=== PATIENT | female | born 1970 | race African-American/Black ===

== ENCOUNTER 2023-04-28 11:12 | Emergency (ER) | payer OTHER, SELFPAY ==
[2023-04-28 12:08] LABS: Bilirubin Neg (Negative); Blood, Urine Negative (Negative); Clarity Clear (Clear); Glucose, Urine (Dipstick) >=1000 mg/dL (Negative); Ketone, Urine 15 mg/dL (Negative); Leukocyte Negative (Negative); Nitrite Negative (Negative); Protein, Urine (Dipstick) Negative (Neg-Trace); Urobilinogen Normal mg/dL (Less than 2)
[2023-04-28 12:17] LABS: Bacteria/HPF 3+ HPF (None Seen); CAUTI Indications for Culture Pelvic or flank pain; RBC/HPF 0-3 HPF (0-3); Squamous Epithelial 0-3 HPF (0-3); WBC/HPF 0-3 HPF (0-3)
[2023-04-28 12:19] LABS: Urine Culture Reflex No No
[2023-04-28] MEDS ORDERED: Ketorolac Tromethamine 30 MG/ML VIAL ONE (12:55)
[2023-04-28] MEDS ORDERED: Cyclobenzaprine 10 MG TAB ONE (12:55)
[2023-04-28] MEDS ORDERED: Dexamethasone 10 MG/ML VIAL ONE (12:57)
== END 2023-04-28 13:25 | disposition home or self-care (01) ==
LOC: CSHERS 11:12
DX: M54.16 Radiculopathy, lumbar region (principal); I25.10 Atherosclerotic heart disease of native coronary artery without angina pectoris; E11.9 Type 2 diabetes mellitus without complications; F17.210 Nicotine dependence, cigarettes, uncomplicated; Z79.82 Long term (current) use of aspirin; Z79.899 Other long term (current) drug therapy
CPT/HCPCS: 72100; 81001; 96372; J1100; J1885

== ENCOUNTER 2023-07-13 11:51 | Emergency (ER) | payer MEDICAID, OTHER ==
[2023-07-13] MEDS ORDERED: Acetaminophen 500 MG TAB ONE (14:49)
[2023-07-13 15:14] LABS: SARS-CoV-2 NAA Rapid Test Not Detected (NotDetected)
== END 2023-07-13 16:02 | disposition left against medical advice (07) ==
LOC: CSHERS 11:51
DX: Z53.21 Procedure and treatment not carried out due to patient leaving prior to being seen by health care provider (principal)

== ENCOUNTER 2023-08-05 13:53 | Emergency (ER) | payer MEDICAID ==
[2023-08-05 15:46] LABS: #Basophils 0.1 10x3/uL (0.0-0.2); #Eosinphils 0.1 10x3/uL (0.0-0.5); #Monocytes 0.4 10x3/uL (0.0-1.1); #Neutrophils 2.5 10x3/uL (1.5-8.4); %Eosinophils 1.2 % (0.0-6.0); %Lymphocytes 40.7 % (18.0-47.0); %Neutrophils 48.9 % (40.0-75.0); Hematocrit 43.8 % (34.9-44.5); Hemoglobin 14.4 g/dL (12.0-15.5); Mean Corpuscular HGB CONC 32.9 g/dL (32.0-36.0); Mean Corpuscular Volume 91.3 fl (81.6-98.3); Mean Platelet Volume 11.1 fl (7.4-10.4); Platelet Count 298 10x3/uL (150-450); RBC Distribution Width 12.5 % (11.5-14.5); White Blood Cell (WBC) Count 5.1 10x3/uL (3.5-10.5)
[2023-08-05 15:58] LABS: ALT (SGPT) 10 U/L (8-55); AST (SGOT) 12 U/L (5-34); Albumin 4.3 g/dL (3.5-5.0); Alkaline Phosphatase 130 U/L (40-110); Anion Gap 17 mmol/L (10-20); BUN (Urea Nitrogen) 16 mg/dL (9.8-20.1); Bilirubin, Total 0.3 mg/dL (0.2-1.2); Calc. Creatinine Clearance 0 mL/min (70-130); Calcium 9.5 mg/dL (7.8-10.44); Carbon Dioxide 25 mmol/L (22-29); Chloride 97 mmol/L (98-107); Estimated GFR 57; Globulin 3.3 g/dL (2.4-3.5); Potassium 4.9 mmol/L (3.5-5.1); Protein, Total 7.6 g/dL (6.0-8.3); Sodium 134 mmol/L (136-145)
[2023-08-05 15:59] LABS: Glucose 552 mg/dL (70-105)
[2023-08-05 16:03] LABS: Troponin I Less than 0.010 ng/mL (< 0.028)
[2023-08-05] MEDS ORDERED: Insulin Regular 300 UNITS/3 ML VIAL ONE (16:36)
[2023-08-05 16:38] LABS: Actual Bicarbonate (HCO3v) 30.8 mEq/L (22-28); Analyzer IN Cardio CS ER; Base Excess 3.9 mEq/L (-2 - +2); Calcium, Ionized (venous) 1.14 mmol/L (1.16-1.32); Chloride (VBG) 97 mmol/L (98-106); Hematocrit-VBG 45 % (36.0-47.0); Hemoglobin (Hb) 15.2 g/dL (11.7-16.0); Potassium (VBG) 4.33 mmol/L (3.70-5.30); Puncture Site Other Site; Sodium 138 mmol/L (133-146); pH (venous) 7.364 (7.32-7.43)
[2023-08-05 17:00] LABS: Bilirubin Neg (Negative); Blood, Urine 10 (Negative); Clarity Clear (Clear); Glucose, Urine (Dipstick) >=1000 mg/dL (Negative); Ketone, Urine 5 mg/dL (Negative); Leukocyte Negative (Negative); Nitrite Positive (Negative); Protein, Urine (Dipstick) 15 mg/dl (Neg-Trace); Specific Gravity, Urine 1.015 (1.005-1.030); Urobilinogen Normal mg/dL (Less than 2)
[2023-08-05 17:09] LABS: Bacteria/HPF 3+ HPF (None Seen); CAUTI Indications for Culture Pelvic or flank pain; RBC/HPF 0-3 HPF (0-3)
[2023-08-05 17:10] LABS: Yeast-Budding Rare HPF (None Seen)
[2023-08-05 17:13] LABS: Urine Culture Reflex No No
[2023-08-05 17:38] LABS: SARS-CoV-2 NAA Rapid Test Not Detected (NotDetected)
[2023-08-05 18:24] LABS: Glucose 304 mg/dL (70-105)
[2023-08-05] MEDS ORDERED: Fluconazole 100 MG TAB PO SCH (19:00)
== END 2023-08-05 19:10 | disposition home or self-care (01) ==
LOC: CSHERS 13:53
DX: E10.9 Type 1 diabetes mellitus without complications (principal); N39.0 Urinary tract infection, site not specified; I25.10 Atherosclerotic heart disease of native coronary artery without angina pectoris; Z79.4 Long term (current) use of insulin; F17.210 Nicotine dependence, cigarettes, uncomplicated; Z79.899 Other long term (current) drug therapy; Z79.82 Long term (current) use of aspirin; Z20.822 Contact with and (suspected) exposure to COVID-19
CPT/HCPCS: 36415; 36416; 71045; 80053; 81001; 82010; 82805; 83605; 84484; 85025; 87077; 87086; 87186; 93005; 96361; 96374; J1815

== ENCOUNTER 2023-10-17 12:08 | Emergency (ER) | payer OTHER ==
[2023-10-17] MEDS ORDERED: Benzonatate 100 MG CAP ONE (13:14)
[2023-10-17] MEDS ORDERED: Ibuprofen 200 MG TAB ONE (13:14)
== END 2023-10-17 14:26 | disposition home or self-care (01) ==
LOC: CSHERS 12:08
DX: L60.0 Ingrowing nail (principal); R05.9 Cough, unspecified; E10.9 Type 1 diabetes mellitus without complications; F17.210 Nicotine dependence, cigarettes, uncomplicated
CPT/HCPCS: 71045

== ENCOUNTER 2023-11-03 15:53 | Emergency (ER) | payer OTHER ==
[2023-11-03] MEDS ORDERED: Ondansetron ODT 4 MG TAB ONE (17:02)
[2023-11-03] MEDS ORDERED: Ketorolac Tromethamine 30 MG (1 mL) VIAL ONE (17:02)
[2023-11-03 17:18] LABS: SARS-CoV-2 NAA Rapid Test Not Detected (NotDetected)
== END 2023-11-03 18:35 | disposition home or self-care (01) ==
LOC: CSHERS 15:53
DX: J06.9 Acute upper respiratory infection, unspecified (principal); F14.10 Cocaine abuse, uncomplicated; E10.9 Type 1 diabetes mellitus without complications; F17.210 Nicotine dependence, cigarettes, uncomplicated; Z55.6 Problems related to health literacy
CPT/HCPCS: 96372; 99283; J1885; Q0162

== ENCOUNTER 2023-11-12 20:43 | Observation (INO) | payer OTHER ==
[2023-11-12] MEDS ORDERED: Ketorolac Tromethamine 30 MG (1 mL) VIAL ONE (21:36)
[2023-11-12] MEDS ORDERED: Ondansetron PF 4 MG/2 ML Vial ONE (21:36)
[2023-11-12 22:31] LABS: ALT (SGPT) 7 U/L (8-55); AST (SGOT) 14 U/L (5-34); Albumin 3.9 g/dL (3.5-5.0); Alkaline Phosphatase 76 U/L (40-110); Anion Gap 15 mmol/L (10-20); BUN (Urea Nitrogen) 12 mg/dL (9.8-20.1); Bilirubin, Total 0.2 mg/dL (0.2-1.2); Calc. Creatinine Clearance 0 mL/min (70-130); Carbon Dioxide 23 mmol/L (22-29); Chloride 108 mmol/L (98-107); Estimated GFR 95; Globulin 2.9 g/dL (2.4-3.5); Protein, Total 6.8 g/dL (6.0-8.3); Sodium 142 mmol/L (136-145)
[2023-11-12 22:32] LABS: Critical Call Chemistry NUR.AEB @2232; Glucose 45 mg/dL (70-105)
[2023-11-12 22:39] LABS: Influenza A by NAA Not Detected (NotDetected); Influenza B by NAA Not Detected (NotDetected); SARS-CoV-2 NAA Rapid Test Not Detected (NotDetected)
[2023-11-12 23:14] LABS: #Basophils 0.1 10x3/uL (0.0-0.2); #Eosinphils 0.1 10x3/uL (0.0-0.5); #Monocytes 0.7 10x3/uL (0.0-1.1); #Neutrophils 4.8 10x3/uL (1.5-8.4); %Basophils 0.5 % (0.0-2.0); %Eosinophils 1.4 % (0.0-6.0); %Lymphocytes 38.3 % (18.0-47.0); %Monocytes 7.6 % (0.0-10.0); %Neutrophils 51.7 % (40.0-75.0); Hematocrit 42.2 % (34.9-44.5); Hemoglobin 13.6 g/dL (12.0-15.5); Mean Corpuscular HGB CONC 32.2 g/dL (32.0-36.0); Mean Corpuscular Hemoglobin 29.6 pg (27.0-33.0); Mean Corpuscular Volume 91.7 fl (81.6-98.3); Platelet Count 168 10x3/uL (150-450); RBC Distribution Width 13.3 % (11.5-14.5); White Blood Cell (WBC) Count 9.3 10x3/uL (3.5-10.5)
[2023-11-12 23:15] LABS: Large Platelets SLIGHT (None Seen); Platelet Adequacy Comment Appears Adequate; Platelet Clumps SLIGHT; RBC Morph Comment Within Normal Limits
[2023-11-13 00:39] LABS: Magnesium 1.8 mg/dL (1.6-2.6)
[2023-11-13] MEDS: GUAIFENESIN SF SOLN 200 MG/10 ML UDCUP PO SCH (01:07)
[2023-11-13] MEDS: Dextrose 5 % And 0.9 % NaCl 1,000 ML IV SCH ×4 (01:08→20:52)
[2023-11-13 03:01] VITALS: BMI 26.4
[2023-11-13 06:02] LABS: Anion Gap 11 mmol/L (10-20); BUN (Urea Nitrogen) 10 mg/dL (9.8-20.1); Calc. Creatinine Clearance 108 mL/min (70-130); Carbon Dioxide 22 mmol/L (22-29); Chloride 111 mmol/L (98-107); Estimated GFR 104; Glucose 64 mg/dL (70-105); Potassium 3.6 mmol/L (3.5-5.1); Sodium 140 mmol/L (136-145)
[2023-11-13] MEDS: Dextrose 10% in Water 1,000 ML IV SCH (06:30)
[2023-11-13] MEDS: guaiFENesin ER 600 MG TAB PO SCH (09:01)
[2023-11-13] MEDS: Enoxaparin 40 MG (0.4 mL) SYRINGE SC SCH (09:03)
[2023-11-13] MEDS ORDERED: Ipratropium/Albuterol 3 ML NEB NEB PRN (10:31)
[2023-11-13] MEDS: Benzonatate 100 MG CAP PO PRN (11:25)
[2023-11-13] MEDS: Loratadine 10 MG TAB PO PRN (11:25)
[2023-11-13] MEDS: Doxycycline 100 MG CAP PO SCH ×2 (11:26→20:52)
[2023-11-13] MEDS: Dicyclomine 10 MG CAP PO PRN (12:51)
[2023-11-13] MEDS: Saccharomyces boulardii 250 MG CAP PO SCH (15:28)
[2023-11-13] MEDS: Atorvastatin Calcium 40 MG TAB PO SCH (20:50)
[2023-11-13] MEDS: Ventolin HFA Inhaler 60 PUFF INHALER INH PRN (21:35)
[2023-11-14] MEDS ORDERED: Glucagon 1 MG/ML KIT IM PRN (07:45)
[2023-11-14] MEDS ORDERED: Dextrose 5% in Water 1,000 ML IV PRN (07:45)
[2023-11-14] MEDS ORDERED: Dextrose 50% Abboject 50 ML SYRINGE IVP PRN (07:45)
[2023-11-14] MEDS: Saccharomyces boulardii 250 MG CAP PO SCH (08:47)
[2023-11-14] MEDS: Aspirin 81 mg Enteric Coated Tablet PO SCH (08:48)
[2023-11-14] MEDS: Losartan 25 MG TAB PO SCH (08:48)
[2023-11-14] MEDS: HumaLOG 300 UNITS/3 ML VIAL SC SCH ×2 (08:49→18:18)
[2023-11-14] MEDS ORDERED: Lisinopril 2.5 MG TAB PO SCH (09:00)
[2023-11-14 17:36] VITALS: BP 150/88; TEMP 98.7
== END 2023-11-14 18:47 | disposition home or self-care (01) ==
LOC: CSHERS 20:43 → CSHERHOLD 23:43 → CSHTELE 11-13 02:19
PROVIDERS: ADMIT Family Medicine; ATTEND Nurse Practitioner Family
DX: J20.9 Acute bronchitis, unspecified (principal); J45.20 Mild intermittent asthma, uncomplicated; E10.649 Type 1 diabetes mellitus with hypoglycemia without coma; I25.10 Atherosclerotic heart disease of native coronary artery without angina pectoris; E78.5 Hyperlipidemia, unspecified; Z79.85 Long-term (current) use of injectable non-insulin antidiabetic drugs; Z79.51 Long term (current) use of inhaled steroids; Z79.899 Other long term (current) drug therapy; Z79.4 Long term (current) use of insulin; Z86.718 Personal history of other venous thrombosis and embolism
CPT/HCPCS: 36415; 36416; 71046; 80048; 80053; 83735; 85025; 94664; G0378; J1815; J1885; J2405; J7042

== ENCOUNTER 2024-02-22 13:19 | Emergency (ER) | payer OTHER ==
[~2024-02-22 13:19] MED LIST: Iopamidol 370 76% 100 ML VIAL ONE
[2024-02-22 14:29] LABS: #Basophils 0.05 10x3/uL (0.0-0.2); #Eosinphils 0.06 10x3/uL (0.0-0.5); #Monocytes 0.59 10x3/uL (0.0-1.1); #Neutrophils 5.44 10x3/uL (1.5-8.4); %Basophils 0.6 % (0.0-2.0); %Eosinophils 0.8 % (0.0-6.0); %Lymphocytes 20.8 % (18.0-47.0); %Monocytes 7.6 % (0.0-10.0); %Neutrophils 69.7 % (40.0-75.0); Hematocrit 37.1 % (34.9-44.5); Hemoglobin 12.3 g/dL (12.0-15.5); Mean Corpuscular HGB CONC 33.2 g/dL (32.0-36.0); Mean Corpuscular Hemoglobin 30.9 pg (27.0-33.0); Mean Corpuscular Volume 93.2 fL (81.6-98.3); Mean Platelet Volume 10.8 fL (7.4-10.4); Platelet Count 283 10x3/uL (150-450); RBC Distribution Width 13.5 % (11.5-14.5); Red Blood Cell (RBC) Count 3.98 10x6/uL (3.90-5.03); White Blood Cell (WBC) Count 7.8 10x3/uL (3.5-10.5)
[2024-02-22 14:39] LABS: INR-International Normal Ratio 0.9; PTT 25.2 sec (22.0-33.0); Prothrombin Time 9.7 sec (9.5-12.1)
[2024-02-22 14:43] LABS: ALT (SGPT) 20 U/L (8-55); AST (SGOT) 26 U/L (5-34); Albumin 3.2 g/dL (3.5-5.0); Alkaline Phosphatase 98 U/L (40-110); Anion Gap 15 mmol/L (10-20); BUN (Urea Nitrogen) 11 mg/dL (9.8-20.1); Bilirubin, Total 0.2 mg/dL (0.2-1.2); Calc. Creatinine Clearance 0 mL/min (70-130); Calcium 9.1 mg/dL (7.8-10.44); Carbon Dioxide 26 mmol/L (22-29); Chloride 106 mmol/L (98-107); Estimated GFR 86; Globulin 2.9 g/dL (2.4-3.5); Glucose 112 mg/dL (70-105); Potassium 4.3 mmol/L (3.5-5.1); Protein, Total 6.1 g/dL (6.0-8.3); Sodium 143 mmol/L (136-145)
[2024-02-22 14:46] LABS: Troponin I Less than 0.010 ng/mL (< 0.028)
[2024-02-22 15:36] LABS: Bilirubin Neg (Negative); Blood, Urine Negative (Negative); Clarity Clear (Clear); Glucose, Urine (Dipstick) Normal (Negative); Ketone, Urine Negative (Negative); Leukocyte Negative (Negative); Nitrite Negative (Negative); Protein, Urine (Dipstick) 15 mg/dl (Neg-Trace)
[2024-02-22 15:46] LABS: Bacteria/HPF Rare-Few HPF (None Seen); CAUTI Indications for Culture Pelvic or flank pain; RBC/HPF None Seen HPF (0-3); WBC/HPF 0-3 HPF (0-3)
[2024-02-22 15:47] LABS: Urine Culture Reflex No No
[2024-02-22 15:50] LABS: D-Dimer Test 1.04 mcg/mL (0.19-0.50)
== END 2024-02-22 16:30 | disposition home or self-care (01) ==
LOC: CSHERS 13:19
DX: I80.8 Phlebitis and thrombophlebitis of other sites (principal); I25.10 Atherosclerotic heart disease of native coronary artery without angina pectoris; E10.9 Type 1 diabetes mellitus without complications; Z79.4 Long term (current) use of insulin; F17.210 Nicotine dependence, cigarettes, uncomplicated
CPT/HCPCS: 36415; 71275; 80053; 81001; 83880; 84484; 85025; 85379; 85610; 85730; 93005; Q9967

== ENCOUNTER 2024-06-15 21:53 | Emergency (ER) | payer OTHER ==
[2024-06-15] MEDS ORDERED: predniSONE 20 MG TAB ONE (22:17)
[2024-06-15] MEDS ORDERED: Albuterol 2.5 MG (3 mL) NEB ONE (22:23)
[2024-06-15] MEDS ORDERED: Ipratropium/Albuterol 3 ML NEB ONE (22:23)
[2024-06-15 22:35] LABS: #Basophils 0.04 10x3/uL (0.0-0.2); #Eosinphils 0.08 10x3/uL (0.0-0.5); #Monocytes 0.46 10x3/uL (0.0-1.1); #Neutrophils 5.09 10x3/uL (1.5-8.4); %Basophils 0.5 % (0.0-2.0); %Eosinophils 0.9 % (0.0-6.0); %Lymphocytes 33.4 % (18.0-47.0); %Monocytes 5.4 % (0.0-10.0); %Neutrophils 59.4 % (40.0-75.0); Hematocrit 37.8 % (34.9-44.5); Hemoglobin 12.8 g/dL (12.0-15.5); Mean Corpuscular HGB CONC 33.9 g/dL (32.0-36.0); Mean Corpuscular Hemoglobin 30.6 pg (27.0-33.0); Mean Corpuscular Volume 90.4 fL (81.6-98.3); Mean Platelet Volume 10.4 fL (7.4-10.4); Platelet Count 257 10x3/uL (150-450); Red Blood Cell (RBC) Count 4.18 10x6/uL (3.90-5.03); White Blood Cell (WBC) Count 8.6 10x3/uL (3.5-10.5)
[2024-06-15 22:50] LABS: ALT (SGPT) 18 U/L (8-55); AST (SGOT) 15 U/L (5-34); Albumin 3.5 g/dL (3.5-5.0); Alkaline Phosphatase 112 U/L (40-110); Anion Gap 14 mmol/L (10-20); BUN (Urea Nitrogen) 9 mg/dL (9.8-20.1); Bilirubin, Total 0.2 mg/dL (0.2-1.2); Calc. Creatinine Clearance 0 mL/min (70-130); Calcium 9.3 mg/dL (7.8-10.44); Carbon Dioxide 27 mmol/L (22-29); Chloride 100 mmol/L (98-107); Estimated GFR 84; Globulin 3.2 g/dL (2.4-3.5); Glucose 356 mg/dL (70-105); Lipase 10 U/L (8-78); Potassium 4.8 mmol/L (3.5-5.1); Protein, Total 6.7 g/dL (6.0-8.3); Sodium 136 mmol/L (136-145)
[2024-06-15 22:54] LABS: Troponin I Less than 0.010 ng/mL (< 0.028)
[2024-06-15 23:54] LABS: Influenza A by NAA Not Detected (NotDetected); Influenza B by NAA Not Detected (NotDetected); SARS-CoV-2 NAA Rapid Test Not Detected (NotDetected)
== END 2024-06-16 00:17 | disposition home or self-care (01) ==
LOC: CSHERS 21:53
DX: R05.9 Cough, unspecified (principal); R06.02 Shortness of breath; E10.65 Type 1 diabetes mellitus with hyperglycemia; F17.210 Nicotine dependence, cigarettes, uncomplicated; Z79.4 Long term (current) use of insulin
CPT/HCPCS: 36415; 71045; 80053; 83690; 84484; 85025; 93005; 94644; 94760; J7512; J7611; J7620

== ENCOUNTER 2024-07-19 09:53 | Emergency (ER) | payer OTHER ==
[2024-07-19] MEDS ORDERED: HYDROcodone/Acetaminophen 5/325 mg Tablet ONE (12:25)
== END 2024-07-19 13:27 | disposition home or self-care (01) ==
LOC: CSHERS 09:53
DX: M79.645 Pain in left finger(s) (principal); R05.9 Cough, unspecified; E10.9 Type 1 diabetes mellitus without complications; I25.10 Atherosclerotic heart disease of native coronary artery without angina pectoris; I25.2 Old myocardial infarction; F17.210 Nicotine dependence, cigarettes, uncomplicated; Z95.9 Presence of cardiac and vascular implant and graft, unspecified; Z79.4 Long term (current) use of insulin
CPT/HCPCS: 71046; 87428

== ENCOUNTER 2024-10-07 11:38 | Emergency (ER) | payer OTHER ==
[2024-10-07 12:12] LABS: Bilirubin Neg (Negative); Blood, Urine Negative (Negative); Clarity Clear (Clear); Glucose, Urine (Dipstick) >=1000 mg/dL (Negative); Ketone, Urine Negative (Negative); Leukocyte 25 (Negative); Nitrite Negative (Negative); Protein, Urine (Dipstick) 15 mg/dl (Neg-Trace); Urobilinogen Normal mg/dL (Less than 2)
[2024-10-07 12:14] LABS: Pregnancy Test - Urine (BHCG) Negative (Negative); Pregu Control Background? CLEAR/WHITE (CLR/WHITE); Pregu Control Bar Appear? YES (CONTROL BAR)
[2024-10-07] MEDS ORDERED: Ketorolac Tromethamine 30 MG (1 mL) VIAL ONE (12:21)
[2024-10-07] MEDS ORDERED: Cyclobenzaprine 10 MG TAB ONE (12:21)
[2024-10-07 12:23] LABS: Bacteria/HPF Rare-Few HPF (None Seen); CAUTI Indications for Culture Pelvic or flank pain; RBC/HPF 0-3 HPF (0-3); Squamous Epithelial Greater than 50 HPF (0-3)
[2024-10-07 12:24] LABS: Urine Culture Reflex No No
== END 2024-10-07 12:31 | disposition home or self-care (01) ==
LOC: CSHERS 11:38
DX: M54.42 Lumbago with sciatica, left side (principal); E10.9 Type 1 diabetes mellitus without complications; F17.210 Nicotine dependence, cigarettes, uncomplicated; Z95.5 Presence of coronary angioplasty implant and graft; Z79.4 Long term (current) use of insulin
CPT/HCPCS: 81001; 81025; 96372; 99283; J1885

== ENCOUNTER 2025-05-09 09:53 | Emergency (ER) | payer OTHER | END 2025-05-09 13:48 | disposition home or self-care (01) | LOC: CSHERS 09:53 | DX: S46.812A Strain of other muscles, fascia and tendons at shoulder and upper arm level, left arm, initial encounter (principal); I25.10 Atherosclerotic heart disease of native coronary artery without angina pectoris; I25.2 Old myocardial infarction; E10.9 Type 1 diabetes mellitus without complications; F17.210 Nicotine dependence, cigarettes, uncomplicated; Z79.4 Long term (current) use of insulin; W01.198A Fall on same level from slipping, tripping and stumbling with subsequent striking against other object, initial encounter | CPT/HCPCS: 99283 ==

== ENCOUNTER 2025-05-29 16:51 | Emergency (ER) | payer OTHER | END 2025-05-29 18:33 | disposition home or self-care (01) | LOC: CSHERS 16:51 | DX: J06.9 Acute upper respiratory infection, unspecified (principal); E78.5 Hyperlipidemia, unspecified; I25.2 Old myocardial infarction; E10.9 Type 1 diabetes mellitus without complications; Z79.899 Other long term (current) drug therapy; Z79.4 Long term (current) use of insulin; Z79.85 Long-term (current) use of injectable non-insulin antidiabetic drugs; F17.210 Nicotine dependence, cigarettes, uncomplicated | CPT/HCPCS: 71045; 87428 ==